=== PATIENT | female | born 1950 | race Caucasian/White ===

== ENCOUNTER 2025-04-21 10:54 | Emergency (ER) | payer MEDICARE, OTHER, SELFPAY ==
--- OUTSIDE RECORDS SUMMARY | 2019-06-29 15:06 | XMS_ITS | Encounter Summary ---
Author Organization [facility] Address [address] [place] [phone] Phone Care Team Providers Care Outreach Analyst Name Role Phone Pcp, Unknown Primary Care Provider Unavailabl e Encounter Details Date Type Department Care Team (Late st Contact Info) Description 06/29/2019 3:06 PM EST Hospital Encounter [facility] [address] [place] [id number] Catrina Johnston CNP [address] [place] [id number] Social History Tobacco Use Types Packs/Day Years Used Date Smoking Tobacco: Never Smokeless Tobacco: Never Alcohol Use Standard Drinks/Week Comments Yes 0 (1 standard drink = 0.6 oz pur e alcohol) occasionally Education Answer Date Recorded Are you interested in more education? Not on samir e 09/10/2022 Are you concerned about learning? Not on file 09/10/2022 No 09/10/2022 No 09/10/2022 Digital Access Answer Date Recorded No 10/09/2022 No 10/09/2022 No 10/09/2022 Reliable internet access at home? Not on file 10/09/2022 Device with a working camera? Not on file Comments Unknown Sex and Gender Information Value Date Recorded Sex Assigned at Not on file Legal Sex Female 2:45 PM EST Gender Identity Not on file Sexual Orientation Not on file documented as of this encounter Plan of Treatment Not on file documented as of this encounter Procedures Procedure Name Priority Date/Time Associated Diagnosis Comments XR WRIST 3 OR MORE VIEWS (LEFT) Urgent/patient waiting 06/29/2019 3:13 PM EST Left wrist injury, initial encounter documented in this encounter Results * XR WRIST 3 OR MORE VIEWS (LEFT) (06/29/2019 3:13 PM EST) Anatomical Region Laterality Modality Wrist Left Radiographic Zuly ging 06/29/2019 3:16 PM EST Impressions 06/29/2019 3:17 PM EST No acute traumatic bony abnormality identified. POS - [id number] Narrative 06/29/2019 3:17 PM EST COMPARISON: None FINDINGS: Frontal, lateral, oblique, and specialized navicular views reveal no acute fracture or gross subluxation. Prominent degenerative changes are present in the first carpal-metacarpal and trapezio-scaphoid compartments. Procedure Note Yousif Wells MD - 06/29/2019 COMPARISON: None FINDINGS: Frontal, lateral, oblique, and specialized navicular views reveal no acutefracture or gross subluxation. Prominent degenerative changes are presentin the first carpal-metacarpal and trapezio-scaphoid compartments. IMPRESSION: No acute traumatic bony abnormality identified. POS - [id number] Catrina Johnston ASSOCIATE RELATIONS SPECIALIST IMG XR UPPER EXTREMITY Arianna l Result documented in this encounter Visit Diagnoses Not on filedocumented in this encounter Care Teams Outreach Analyst Relationship Specialty Start Date End Date Pcp, Unknown PCP - General 06/29/19 documented as of this encounter Additional Source Comments The information contained in this document represents components of the legal health record. It is not the complete legal health record.[facility]
--- OUTSIDE RECORDS SUMMARY | 2019-06-29 15:13 | XMS_ITS | Encounter Summary ---
Author Organization [facility] Address [address] [place] [phone] Phone Care Team Providers Care Farmworker Grain Name Role Phone Pcp, Unknown Primary Care Provider Unavailabl e Encounter Details Date Type Department Care Team (Late st Contact Info) Description 06/29/2019 3:13 PM EST Hospital Encounter [facility] [address] [place] [phone] Catrina Johnston CNP [address] [place] [phone] Social History Tobacco Use Types Packs/Day Years [...] Name Priority Date/Time Associated Diagnosis Comments XR FOREARM 2 VIEWS (LEFT) Urgent/patient waiting 06/29/2019 3:14 PM EST Left wrist injury, initial encounter documented in this encounter Results * XR Forearm 2 Views (Left) (06/29/2019 3:14 PM EST) Anatomical Region Laterality Modality Forearm Left Radiographic Zuly ging 06/29/2019 3:17 PM EST Impressions 06/29/2019 3:19 PM EST No fracture or dislocation. Cannot exclude very minimal radial ulnar subluxation which may be projectional. POS - [id number] Narrative 06/29/2019 3:19 PM EST COMPARISON: Current risk FINDINGS: Frontal and lateral views were obtained. On the lateral projection there is soft tissue swelling overlying the distal forearm. Cannot exclude minimal dorsal subluxation of the ulna in relation to the radius but there is no carleen dislocation. No fracture apparent. Elbow unremarkable in appearance. Procedure Note Yousif Wells MD - 06/29/2019 COMPARISON: Current risk FINDINGS: Frontal and lateral views were obtained. On the lateral projection thereis soft tissue swelling overlying the distal forearm. Cannot excludeminimal dorsal subluxation of the ulna in relation to the radius but thereis no carleen dislocation. No fracture apparent. Elbow unremarkable inappearance. IMPRESSION: No fracture or dislocation. Cannot exclude very minimal radial ulnarsubluxation which may be projectional. POS - [id number] Catrina Johnston POTATO CHIP COOKER MACHINE IMG XR UPPER EXTREMITY Arianna l Result documented in this encounter Visit Diagnoses Not on filedocumented in this encounter Care Teams Farmworker Grain Relationship Specialty Start Date End Date Pcp, Unknown PCP - General 06/29/19 documented as of this encounter Additional Source Comments The information contained in this document represents components of the legal health record. It is not the complete legal health record.[facility]
--- NOTE | 2025-04-21 | ECG_ITS ---
Test Reason : CHEST PAIN Blood Pressure : */* mmHG Vent. Rate : 80 BPM Atrial Rate : 80 BPM P-R Int : 148 ms QRS Dur : 72 ms QT Int : 392 ms P-R-T Axes : 69 -15 53 degrees QTcB Int : 452 ms Sinus rhythm with occasional Premature ventricular complexes Possible Left atrial enlargement Nonspecific ST abnormality Abnormal ECG When compared with ECG of 10-Aug-2017 11:19, Premature ventricular complexes are now Present Referred By: Generic ED Physician Electronically Signed By: MAXINE DALEY MD
--- NOTE | ~2025-04-21 | XR_ITS ---
CLINICAL HISTORY: palpitations 1 view chest x-ray Comparison: None provided Findings: Subtle hazy density projecting of the medial right lower lung. No pleural effusion. No pneumothorax. Normal heart size and central pulmonary vascularity. No acute soft tissue or osseous abnormality. Impression: 1. Subtle density projecting over medial aspect of right lower lung favored to represent projection artifact versus small area of atelectasis however developing infectious or inflammatory process may be considered in the appropriate clinical setting. 2. Additional findings as above. This document has been electronically signed by: Nallely Gomez MD on 04/21/2025 12:19:01
[2025-04-21 11:07] VITALS: BP 148/65; PULSE 71; RESP 20; O2SAT 97; BMI 23.1
--- NOTE | 2025-04-21 11:08 | ED.ARRPALP ---
HPI - Arrhythmia/Palpitations General Chief Complaint: Arrhythmia/Palpitations Stated Complaint: fast heart rate Time Seen by Provider: 04/21/25 12:06 Source: patient, family, RN notes reviewed and old records reviewed Mode of arrival: ambulatory Limitations: no limitations History of Present Illness ED Provider: Kajal SANDS narrative: Patient is a 74-year-old female presenting to the emergency department with complaint of palpitations in the center of her chest. Occasional associated shortness of breath. States the palpitations have been going on for some time but is unable to specify further. Denies chest pain, dizziness, lightheadedness, syncope. Denies any past medical history, states she is not on any daily medications. Has never seen a tax technician. Denies recent cough or fevers. Significant other spoke with this provider outside of exam room and notes that patient is very anxious, and feels her symptoms may be related to this. complaint: palpitations Related Data Allergies Allergy/AdvReac Type Severity Reaction Status Date / Time No Known Allergies (No Known Allergy Verified 04/21/25 11:10 Allergies*) Review of Systems Review of Systems: As per HPI Yes all other systems are reviewed and are negative Constitutional: Constitutional: Reports as per HPI [facility] Social History Social History Alcohol intake: current Alcohol intake frequency: holidays/special occasions only Smoked in Last 30 Days: No Use of substances other than those prescribed or required for medical reasons: No Advance Directives: Yes Advance Directives Information Provided: Yes Advance Directives on File: No Do you have a plan to hurt others: No Plan Physical Exam Vital Signs: Vital Signs: Last Vital Signs Temp 97.5 F 04/21/25 11:20 Pulse 71 04/21/25 11:20 Resp 26 H 04/21/25 11:20 BP 162/66 H 04/21/25 11:20 Pulse Ox 99 04/21/25 11:20 O2 Del Method Room Air 04/21/25 11:20 BMI result Body Mass Index 23.1 Vital signs have been reviewed and appear to be correct. Blood pressure elevated. Heart rate normal. Respiratory rate normal during physical exam. Temperature normal. Oxygen saturation normal. Const: General: cooperative, healthy appearing and no acute distress Orientation/consciousness: oriented to person, oriented to place, oriented to time and patient oriented x3 Limitations: no limitations HEENT: Head: Yes normocephalic and Yes atraumatic Ears: external ears normal General nose exam: Normal external nose present Face and sinus: Yes face symmetric Mouth: oropharynx normal and moist mucous membranes Throat: Yes uvula midline Eyes: Pupils: Equal, round and reactive pupils present Neck: Neck: Yes normal visual inspection and Yes supple Resp: Effort & Inspection: normal respiratory effort and able to speak in complete sentences Auscultation: clear to auscultation bilaterally Cardio: Rate: regular rate Rhythm: regular rhythm Heart sounds: S1 normal heart sound present and S2 normal heart sound present GI: Palpation (GI): Soft to palpation and nontender Auscultation: normoactive bowel sounds : General: Yes no CVA tenderness Back/Spine/Pelvis: Back: no CVA tenderness Skin: General skin exam: elasticity normal and turgor normal Neuro: General: oriented to person, oriented to place, oriented to time, patient oriented x3, moves all extremities, no focal motor deficits and CN's II-XI intact bilaterally Cranial nerves: Yes Equal, round and reactive pupils present Cognition (Neuro): normal cognition Extrem: General: Yes full ROM, Yes no pedal edema and Yes no calf tenderness Psych: Mental Status: mental status grossly normal Affect: normal affect Thought process: Normal thought process present Course Course Course Narrative: This is a Rapid Medical Exam performed in triage by Jerrica Pendleton PA-C. Full HPI, ROS and PE to be performed by primary ED provider. 74 yo F presenting to the ED c/o palpitations since yesterday & feeling anxious/tremulous. Admits to chest pressure & SOB. Denies N/V PE: anxious, tremulous, NAD, nontoxic appearing Plan: EKG, labs, CXR Medical Decision Making Medical Decision Making MDM Narrative: Patient is a 74-year-old female presenting to the emergency department with complaint of palpitations in the center of her chest. On exam patient is awake, A+Ox3, VS WNL, afebrile, normal neurological exam without focal deficits, physical exam findings as above. Given reported symptoms and physical exam findings, initial differential includes but is not limited to cardiac arrhythmia, electrolyte abnormality, anemia, anxiety. Unlikely PE, Wells 0. Labs notable for no anemia, no significant electrolyte abnormality, normal TSH. EKG shows sinus rhythm with occasional PVCs. X-ray chest notable for subtle density of medial right lower lobe. Patient denies any cough, do not feel this represents pneumonia. Will mentioned to patient and she can follow up with her PCP. My interpretation is in agreement with the radiologist's interpretation. No episodes of palpitations while in the emergency department. Results discussed with patient and all questions answered. Will refer to Cardiology for further evaluation. Return precautions discussed. Patient verbalized understanding of and agreement with plan. Differential Diagnosis Differential Diagnoses: The differential diagnosis associated with the presentation includes as per [facility] Admission/Observation Consideration of admission/observation: Escalation of care including admission/observation considered Patient would have been admitted to the hospital and transferred to appropriate facility had their clinical presentation warranted hospital admission. Lab Data [facility] Lab Attestation statement: I reviewed the patient's lab results. as per [facility] 04/21/25 11:19 04/21/25 11:19 Labs: Lab Results 04/21/25 Range/Units 11:19 WBC 5.9 (4.8-10.8) X10*3/uL RBC 4.38 (4.20-5.50) X10*6/uL Hgb 12.9 (12.0-16.0) g/dl Hct 39.1 (37.0-47.0) % MCV 89.3 (80.0-98.0) fL MCH 29.5 (27.0-33.0) pg MCHC 33.0 (31.0-35.0) g/dl RDW 13.0 (11.0-16.0) % Plt Count 239 (160-400) X10*3/uL MPV 10.0 (9.4-12.3) fL Immature Gran % (Auto) 0.3 (0.0-0.4) % Neut % (Auto) 60.1 (45-73) % Lymph % (Auto) 29.1 (20-40) % Webb % (Auto) 7.8 (2-11) % Eos % (Auto) 2.0 (0-4) % Baso % (Auto) 0.7 (0-2) % Lymph # (Auto) 1.7 (1.2-4.9) X10*3/uL Webb # (Auto) 0.5 (0.1-1.2) X10*3/uL Eos # (Auto) 0.1 (0.0-0.4) X10*3/uL Baso # (Auto) 0.0 (0.0-0.2) X10*3/uL Abs Immat Gran (auto) 0.02 (0.00-0.03) X10*3/uL Absolute Neuts (auto) 3.5 (2.0-8.3) x10*3/uL Absolute Nucleated RBC 0.000 (0.0-0.012) X10*3/uL Nucleated RBC % (auto) 0.0 (0.0-0.2) /100WBC Sodium 143 (135-145) mmol/L Potassium 4.2 (3.3-5.1) mmol/L Chloride 109 H (96-108) mmol/L Carbon Dioxide 25 (22-29) mmol/L Anion Gap 13 (12-20) BUN 15 (9-16) mg/dL Creatinine 0.79 (0.5-1.4) mg/dL Estim Creat Clear Calc 58.5 Estimated GFR > 60 Random Glucose 101 (60-115) mg/dL Calcium 9.1 (8.4-10.2) mg/dL Magnesium 1.9 (1.6-2.6) mg/dL Total Bilirubin 0.6 (0.0-1.0) mg/dL Direct Bilirubin 0.2 (0.0-0.5) mg/dL AST 16 (5-31) U/L ALT 12 (0-31) U/L Alkaline Phosphatase 56 (39-117) U/L Troponin I High Sens < 2.7 (<3.5-17.0) ng/L NT-Pro-B Natriuret Pep 201.9 (<300) pg/mL Total Protein 7.4 (6.5-8.0) g/dL Albumin 4.5 (3.5-5.0) g/dL TSH 3.01 (0.32-4.0) uIU/mL Independent Interpretation I performed an independent interpretation of an: EKG (Sinus rhythm with occasional PVCs, rate 80 beats per minute, normal CO interval, slightly prolonged QTC) and Plain X-Ray Interpretation: CXR notable for subtle density RLL. Radiology Impression Discussion of test interpretation with radiology: I have reviewed the radiologist's reading. Radiologist Impression: 1 view chest x-ray Comparison: None provided Findings: Subtle hazy density projecting of the medial right lower lung. No pleural effusion. No pneumothorax. Normal heart size and central pulmonary vascularity. No acute soft tissue or osseous abnormality. Impression: 1. Subtle density projecting over medial aspect of right lower lung favored to represent projection artifact versus small area of atelectasis however developing infectious or inflammatory process may be considered in the appropriate clinical setting. 2. Additional findings as above. Independent Historian Clinical information obtained from an independent historian. History obtained from or confirmed by: Spouse External Record Review External record reviewed: Inpatient record, Office record and Outpatient record Discharge Plan Discharge Clinical Impression: Palpitations Patient Disposition: Home, Self-Care Instructions: Heart Palpitations (DC), Premature Ventricular Contractions (ED) Additional Instructions: You were evaluated in the emergency department today for palpitations. Your EKG showed occasional premature ventricular contractions. Your labs were reassuring. Your chest x-ray did show evidence of pneumonia, however, a subtle density was noted. We recommend further evaluation for this with your primary care provider which will likely include a repeat chest x-ray. You are being referred to Cardiology for further evaluation of your symptoms. Return to the emergency department if you develop chest pain, shortness of breath or difficulty breathing, dizziness, lightheadedness, fainting or any other new or concerning symptoms. Referrals: [facility] [Provider Group] - 1 week Clinical Impression: Palpitations Print Language: Greek
[2025-04-21 11:20] VITALS: BP 162/66; PULSE 71; RESP 26; TEMP 36.4; O2SAT 99
--- OUTSIDE RECORDS SUMMARY | 2025-04-21 11:23 | XMS_ITS | Clinical Summary ---
Author Organization [facility] Address [address] [address] Phone Care Team Providers Care Landing Gear Mechanic Name Role Phone Pcp, Unknown Primary Care Provider Unavailabl e Allergies No known active allergies Medications No known medications Social History Tobacco Use Types Packs/Day Years [...] on file Sexual Orientation Not on file Last Filed Vital Signs Vital Sign Reading Time Taken Comments Blood Pressure 125/77 06/29/2019 2:56 PM EST Pulse 75 06/29/2019 2:56 PM EST Temperature 36.6 C (97.8 F) 06/29/2019 2:56 PM EST Respiratory Rate - - Oxygen Saturation 99% 06/29/2019 2:56 PM EST Inhaled Oxygen Concentration - - Weight 67.8 kg (149 lb 6.4 oz) 06/29/2019 2:56 P M EST Height 170.2 cm (5' 7 ) 06/29/2019 2:56 PM EST Body Mass Index 23.4 06/29/2019 2:56 PM EST Plan of Treatment Health Maintenance Due Date Last Done Comments LIPID PANEL 1950 DEPRESSION SCREENING 1962 HEPATITIS C SCREENING 1968 MAMMOGRAM 1990 COLOGUARD 12/29/1995 COLONOSCOPY 12/29/1995 COLORECTAL CANCER SCREENING 12/29/1995 FIT TEST 12/29/1995 FOBT 12/29/1995 SIGMOIDOSCOPY 12/29/1995 VIRTUAL COLONOSCOPY 12/29/1995 PNEUMOCOCCAL VACCINES (50+ years) (1 of 1 - PCV) 2000 ZOSTER VACCINES (1 of 2) 2000 OSTEOPOROSIS SCREENING INITI AL (ONE-TIME) 12/29/2015 INFLUENZA VACCINE (#1) 2024 COVID-19 VACCINE (3 - 2024-2 6 season) 2025 06/11/2020, 05/21/2020 RSV VACCINE (1 - 1-dose 75+ series) 2025 Adult Td,Tdap Booster 02/09/2028 02/08/2018 SMOKING STATUS SCREENING (On ce After 26 Yrs) Completed 06/29/2019 HEPATITIS A VACCINES Aged Out No long er eligible based on patient's age to complete this topic HIB VACCINES Aged Out No longer eligi ble based on patient's age to complete this topic MENINGOCOCCAL VACCINES (ACWY) Aged Out No longer eligible based on patient's age to complete this topic MENINGOCOCCAL VACCINES (B) Aged Out N o longer eligible based on patient's age to complete this topic Medical Devices Not on file [place] [id number] MEDICARE PART A & B MEDICARE PART A & B MEDICARE PART A & B MEDICARE PART A & B MEDICARE PART A & B MEDICARE PART A & B MEDICARE PART A & B MEDICARE PART A & B Care Teams Landing Gear Mechanic Relationship Specialty Start Date End Date Pcp, Unknown PCP - General 06/29/19 Additional Source Comments The information contained in this document represents components of the legal health record. It is not the complete legal health record.[facility]
[2025-04-21 11:24] LABS: MANUAL DIFF FLAG NO
[2025-04-21 11:25] LABS: Hematocrit 39.1 % (37.0-47.0); Hemoglobin 12.9 g/dl (12.0-16.0); Imm Gran Abs Auto 0.02 X10*3/uL (0.00-0.03); Imm Gran Pct Auto 0.3 % (0.0-0.4); Lymphocytes Absolute Auto 1.7 X10*3/uL (1.2-4.9); Mean Corpuscular HGB Conc 33.0 g/dl (31.0-35.0); Mean Corpuscular Hemoglobin 29.5 pg (27.0-33.0); Mean Corpuscular Volume 89.3 fL (80.0-98.0); NRBC Abs Auto 0.000 X10*3/uL (0.0-0.012); NRBC Pct Auto 0.0 /100WBC (0.0-0.2); Platelet Count 239 X10*3/uL (160-400); Red Blood Count 4.38 X10*6/uL (4.20-5.50); White Blood Count 5.9 X10*3/uL (4.8-10.8)
[2025-04-21 11:51] LABS: Alanine Aminotransferase 12 U/L (0-31); Albumin Level 4.5 g/dL (3.5-5.0); Alkaline Phosphatase 56 U/L (39-117); Anion Gap 13 (12-20); Aspartate Amino Transferase 16 U/L (5-31); Blood Urea Nitrogen 15 mg/dL (9-16); Calcium 9.1 mg/dL (8.4-10.2); Carbon Dioxide 25 mmol/L (22-29); Chloride 109 mmol/L (96-108); Creatinine Clr Calc Pharmacy 58.5; Estimated Glomerular Filt Rate > 60; Magnesium 1.9 mg/dL (1.6-2.6); NT Pro B Type Natriuretic Pept 201.9 pg/mL (<300); Potassium 4.2 mmol/L (3.3-5.1); Sodium 143 mmol/L (135-145); Total Protein 7.4 g/dL (6.5-8.0)
[2025-04-21 12:18] LABS: Troponin-I High Sensitivity < 2.7 ng/L (<3.5-17.0)
[2025-04-21 13:51] VITALS: BP 148/74; PULSE 72; RESP 18; TEMP 36.6; O2SAT 98
== END 2025-04-21 14:01 | disposition home or self-care (01) ==
PROVIDERS: Physician Assistant; Emergency Provider Emergency Medicine
DX: R00.2 Palpitations (principal); R06.02 Shortness of breath
CPT/HCPCS: 36415; 71045; 80048; 80076; 83735; 83880; 84443; 84484; 85025; 93005; 99285

== ENCOUNTER → 2025-04-21 10:59 | Outpatient (BNV) | payer MEDICARE, OTHER, SELFPAY | PROVIDERS: Emergency Provider Emergency Medicine; Visit Provider Internal Medicine Cardiovascular Disease | DX: R94.31 Abnormal electrocardiogram [ECG] [EKG] (principal); R07.9 Chest pain, unspecified | CPT/HCPCS: 93010 ==

== ENCOUNTER → 2025-04-21 11:09 | Outpatient (BNV) | payer MEDICARE, OTHER, SELFPAY | PROVIDERS: Emergency Provider Emergency Medicine; Visit Provider Radiology Diagnostic Radiology | DX: R00.2 Palpitations (principal) | CPT/HCPCS: 71045 ==